=== PATIENT | male | born 1985 ===

== ENCOUNTER 2025-01-03 09:02 | Emergency (ER) | payer OTHER ==
[~2025-01-03] VITALS: Ht 167.6 cm; Wt 81.8 kg
[2025-01-03 10:01] VITALS: TEMP 98.6
[2025-01-03] MEDS: ACETAMINOPHEN 500 MG TABLET PO ONE (10:31)
[2025-01-03] MEDS: IBUPROFEN 400 MG TABLET PO ONE (10:33)
[2025-01-03 13:45] VITALS: BP 136/81; PULSE 84; RESP 16; O2SAT 99
== END 2025-01-03 14:25 ==
LOC: EMS 09:02
DX: S52.501A Unspecified fracture of the lower end of right radius, initial encounter for closed fracture (principal); T18.9XXA Foreign body of alimentary tract, part unspecified, initial encounter; W22.8XXA Striking against or struck by other objects, initial encounter; W44.8XXA Other foreign body entering into or through a natural orifice, initial encounter; Y93.89 Activity, other specified; Y92.89 Other specified places as the place of occurrence of the external cause; Y99.8 Other external cause status
CPT/HCPCS: 74176; 99284; 73090-TC; 73110-TC; Z7502; Z7610